=== PATIENT | female | born 2005 | race Caucasian/White ===

== ENCOUNTER 2024-04-27 17:11 | Inpatient (IN) | payer MEDICAID, SELFPAY ==
[2024-04-27] VITALS (45 sets, daily range): BP systolic 113–145; BP diastolic 54–78; PULSE 74–141; RESP 14–17; TEMP 35.9–37.1; O2SAT 90–100; BMI 28.3
[2024-04-27] MEDS: Lactated Ringers 1,000 ML 999 ML IV (17:20)
[2024-04-27 17:58] LABS: Absolute Lymphocyte Count 2.53 X10^3/uL (0.83-4.51); Absolute Neutrophil Count 8.3 X10^3/uL (2.0-7.7); Basophil# 0.04 X10^3/uL; Basophil% 0.3 % (0-1); Eosinophil# 0.02 X10^3/uL; Eosinophils% 0.2 % (0-5); Hematocrit 35.4 % (37-47); Hemoglobin 11.3 g/dL (12.0-15.0); Lymphocyte # 2.53 X10^3/ul (0.83-4.51); Lymphocyte % 21.5 % (19-41); Mean Corp Hgb Conc 31.9 g/dL (32-36); Mean Corpuscular Volume 87.6 fL (81-99); Mean Platelet Vol. 11.1 fl (6.2-12.0); Monocyte% 6.8 % (0-10); NRBC Flagged by Analyzer 0 % (0-5); Neutrophil # 8.27 X10^3/uL (2.7-7.7); Neutrophil % 70.3 % (47-70); Platelet Count 274 K/mm3 (150-450); RBC Distribution Width CV 12.9 % (11.6-14.6); RBC Distribution Width SD 40.6 fl (35.1-43.9); Red Blood Count 4.04 M/mm3 (4.2-5.4); White Blood Count 11.8 K/mm3 (4.4-11.0)
[2024-04-27] MEDS: Lactated Ringers 1,000 ML 200 ML IV (18:21)
[2024-04-27] MEDS: fentaNYL-bupivacaine (epidural) 100 ML BAG EPIDURAL (18:28)
--- NOTE | 2024-04-27 18:57 | PCM.HP.OB ---
HPI - General General Date of Admission: 04/27/24 Date of Service: 04/27/24 Chief Complaint: labor HPI Narrative MARCO A SMITH, is a 18 F who presents with contractions. No lof, vb. Good FM. [facility] Medical History (Updated 04/27/24 @ 18:[address] Michelle Cordon, DO) Eczema Home Medications ?Medication ?Instructions ?Recorded ?Last Taken ?Type vit no.95-ferrous 1 tab PO DAILY 04/27/24 Unknown History fumarate 28 mg-folic acid 800 mcg tablet () Allergy/AdvReac Type Severity Reaction Status Date / Time No Known Allergies Allergy Verified 04/27/24 16:39 Family History no significant family his Surgical History no surgical history Social History Smoking Status: Never smoker History Elective abortions Hx Para 0 Spontaneous abortions Hx # Term Pregnancies Ectopic pregnancies Hx # Pregnancies Multiple births # of living children NST FHR Rate Baby A Baseline: 140 Variability:: Moderate Accelerations:: 15 x 15 Decelerations:: None NST Reactive:: Yes FHR Category:: Category I Uterine Activity:: ctx's q 2-3 min Vital Signs Vital Signs Vital Signs: 04/27/24 16:48 04/27/24 16:48 04/27/24 16:50 Temperature Temperature Source Temporal Pulse Rate 101 H Respiratory Rate Blood Pressure BP Systolic BP Diastolic Pulse Ox 99 04/27/24 16:50 04/27/24 16:50 04/27/24 16:50 Temperature Temperature Source Pulse Rate 95 Respiratory Rate 16 Blood Pressure BP Systolic BP Diastolic Pulse Ox 99 04/27/24 16:50 04/27/24 16:51 04/27/24 16:51 Temperature 97.7 F L Temperature Source Pulse Rate 96 Respiratory Rate Blood Pressure 134/78 H BP Systolic 134 BP Diastolic 78 Pulse Ox 04/27/24 18:19 04/27/24 18:19 04/27/24 18:21 Temperature Temperature Source Pulse Rate 114 H Respiratory Rate Blood Pressure 132/72 H BP Systolic 132 BP Diastolic 72 Pulse Ox 100 04/27/24 18:21 04/27/24 18:22 04/27/24 18:24 Temperature Temperature Source Pulse Rate 85 76 Respiratory Rate 16 Blood Pressure BP Systolic BP Diastolic Pulse Ox 04/27/24 18:24 04/27/24 18:26 04/27/24 18:26 Temperature Temperature Source Pulse Rate 97 Respiratory Rate Blood Pressure 122/56 H BP Systolic 122 BP Diastolic 56 Pulse Ox 99 04/27/24 18:29 04/27/24 18:29 04/27/24 18:31 Temperature Temperature Source Pulse Rate 91 Respiratory Rate Blood Pressure 126/57 H BP Systolic 126 BP Diastolic 57 Pulse Ox 100 04/27/24 18:31 04/27/24 18:31 04/27/24 18:34 Temperature Temperature Source Pulse Rate 77 89 Respiratory Rate 16 Blood Pressure BP Systolic BP Diastolic Pulse Ox 04/27/24 18:34 04/27/24 18:35 04/27/24 18:36 Temperature Temperature Source Pulse Rate Respiratory Rate 14 Blood Pressure 113/58 L BP Systolic 113 BP Diastolic 58 Pulse Ox 100 04/27/24 18:36 04/27/24 18:36 04/27/24 18:36 Temperature 96.7 F L Temperature Source Temporal Pulse Rate 82 Respiratory Rate Blood Pressure BP Systolic BP Diastolic Pulse Ox 04/27/24 18:39 04/27/24 18:39 04/27/24 18:44 Temperature Temperature Source Pulse Rate 93 88 Respiratory Rate Blood Pressure BP Systolic BP Diastolic Pulse Ox 99 04/27/24 18:44 04/27/24 18:46 04/27/24 18:46 Temperature Temperature Source Pulse Rate 93 Respiratory Rate Blood Pressure 122/56 H BP Systolic 122 BP Diastolic 56 Pulse Ox 99 04/27/24 18:49 04/27/24 18:49 04/27/24 18:54 Temperature Temperature Source Pulse Rate 87 87 Respiratory Rate Blood Pressure BP Systolic BP Diastolic Pulse Ox 99 04/27/24 18:54 Temperature Temperature Source Pulse Rate Respiratory Rate Blood Pressure BP Systolic BP Diastolic Pulse Ox 98 Weight Weight: 170 lb 6 oz Body Mass Index (BMI) 28.3 Physical Exam Const alert and no apparent distress General Appearance: comfortable HEENT normocephalic Resp normal respiratory effort GI soft to palpation, non-tender and non-distended Labs Labs Labs: Blood Type A POSITIVE Antibody Screen Pending Hct 35.4 % (37-47) L Hgb 11.3 g/dL (12.0-15.0) L Syphilis Total Ab Pending Assessment & Plan (1) 40 weeks gestation of : (2) Active labor at term: PLAN: Patient 6 cm dilated on admission. GBS negative. Epidural for pain control. Cvx now /+1 and head well applied. AROM for minimal to moderate clear fluid. Pelvis adequate and EFW < 4500 grams. (3) Positive hepatitis C antibody test: PLAN: Negative HCV RNA. Likely false positive. Repeat HCV RNA sent on admission as patient did not have repeat drawn third trimester
[2024-04-27 19:44] LABS: Syphilis Antibodies Non-reactive
[2024-04-27] MEDS: Oxytocin 15 Units/NS 250ml 15 UNITS/250 ML IV.SOLN 334 UNITS IV (21:36)
--- NOTE | 2024-04-27 21:59 | PCM.OPRPT ---
Problems Associated Problem List Diagnoses (1) 40 weeks gestation of : (2) Active labor at term: (3) Positive hepatitis C antibody test: Report of Operation Date of Procedure: 04/27/24 Pre-Operative Diagnosis: 40 week gestation, active labor at term Post-Operative Diagnosis: As above Surgery/Procedure Performed:: Repair of right labial laceration Description of Surgical Findings:: VMI in MAT position. Normal appearing placenta with 3 VC Surgeon: Michelle Cordon transfer and pumphouse operator chief: None Type of Anesthesia: Epidural Special Medications: None Specimen's removed: Placenta Drains: None Estimated Blood Loss (mL): 100 Fluids Replaced: N/A Description of Procedure: Patient was prepped once complete and pushing. Head of VMI was delivered in MAT position. The anterior shoulder was delivered with downward traction followed by the posterior shoulder and body of the infant without any excessive traction, force, or delay. A vigorous viable male infant was placed on the maternal abdomen. The cord was clamped and cut after a 60 second delay. The placenta delivered spontaneously and was noted to be normal-appearing and intact with a three-vessel cord. The uterus was explored x 1. Upon inspection, bilateral labial lacerations were noted. The left labial laceration was very superficial and no bleeding was noted. The right labial laceration was bleeding, and was therefore reapproximated using 3-0 Vicryl in a running baseball stitch. Hemostasis was then confirmed. Fundus firm and bleeding hemostatic. A vaginal sweep was performed. Sponge sharp and sponge counts were correct. Grafts/Implants Used: None Complications None
[2024-04-27] MEDS: Oxytocin 15 Units/NS 250ml 15 UNITS/250 ML IV.SOLN 83 UNITS IV (22:06)
[2024-04-28] VITALS (9 sets, daily range): BP systolic 115–130; BP diastolic 58–70; PULSE 69–105; RESP 16–18; TEMP 36.6–37.2; O2SAT 97–98
[2024-04-28] MEDS: Ibuprofen 600 MG Tablet PO ×2 (08:10→15:36)
[2024-04-28] MEDS: Benzocaine/Lanolin/Aloe Vera 85 GM Spray 1 SPRAY TOPICAL (08:10)
--- NOTE | 2024-04-28 11:44 | PCM.PN.OB ---
Subjective Subjective Patient doing well and offers no complaints. Pain is controlled. She is ambulating and voiding without difficulty. Eating without nausea or vomiting. Lochia is normal. Breast-feeding without complaints. She denies chest pain, lightheadedness, leg pain. Objective Data Objective Data Vital Signs: Vital Signs Temp Pulse Resp BP Pulse Ox O2 Del Method 97.8 F 86 16 115/64 99 Room Air 04/28/24 04:45 04/28/24 07:35 04/28/24 04:45 04/28/24 07:35 04/27/24 22:00 04/28/24 04:45 Oxygen Delivery Method Room Air Weight: 170 lb 6 oz Body Mass Index (BMI) 28.3 Intake & Output: Intake and Output for Last 24 Hours 04/26/24 04/27/24 04/28/24 23:59 23:59 23:59 Intake Total 1813.67 / 1813.67 250 / 250 Output Total 200 / 200 250 / 250 Balance 1613.67 / 1613.67 0 / 0 Lab / Micro Data 04/27/24 17:20 Labs: Laboratory Results - last 24 hr 04/27/24 17:20: WBC 11.8 H, RBC 4.04 L, Hgb 11.3 L, Hct 35.4 L, MCV 87.6, MCH 28.0, MCHC 31.9 L, RDW Std Deviation 40.6, RDW Coeff of Drew 12.9, Plt Count 274, MPV 11.1, Immature Gran % (Auto) 0.900, Neut % (Auto) 70.3 H, Lymph % (Auto) 21.5, [place] % (Auto) 6.8, Eos % (Auto) 0.2, Baso % (Auto) 0.3, Absolute Neuts (auto) 8.3 H, Absolute Lymphs (auto) 2.53, Nucleated RBC % 0, Syphilis Total Ab Non-reactive, Blood Type A POSITIVE, Antibody Screen NEGATIVE Physical Exam Const alert and no apparent distress General Appearance: comfortable HEENT normocephalic Resp normal respiratory effort GI soft to palpation, non-tender and non-distended Extremity normal to inspection and no calf tenderness Assessment & Plan (1) Vaginal delivery: PLAN: PPD#1 s/p . Baby and patient doing well. Routine care.
[2024-04-29 01:20] VITALS: BP 132/79; PULSE 127; PULSE 84; RESP 16; O2SAT 97
[2024-04-29] MEDS: Ibuprofen 600 MG Tablet PO (01:22)
[2024-04-29 07:33] VITALS: BP 112/56; PULSE 72
[2024-04-29 08:02] VITALS: BP 112/56; PULSE 72; RESP 16; TEMP 36.2
--- NOTE | 2024-04-29 09:45 | PCM.DC.SUM ---
Providers Date of Admission: 04/27/24 Primary Care Physician: Annalisa Primary Care Phys Reason For Visit: VAGINAL DELIVERY Diagnosis Discharge Diagnosis (1) Vaginal delivery: Status: Acute Code(s): O80 - Encounter for full-term uncomplicated delivery Medications at Discharge Home Medications vit no.95-ferrous fumarate 28 mg-folic acid 800 mcg tablet () 1 tab PO DAILY 04/27/24 acetaminophen 500 mg tablet 1,000 mg (2 x 500 mg) PO Q6H PRN PRN Pain 1-10 Or Fever #0 tabs 04/29/24 ibuprofen 600 mg tablet 600 mg PO Q6H PRN PRN Pain Score 1-10 #0 tabs 04/29/24 Weight / BMI Weight Weight: 170 lb 6 oz Body Mass Index (BMI) 28.3 ABG / Lab / Microbiology Data 04/27/24 17:20 D/C Instructions Discharge Diet: No restrictions Discharge Activity: Return to Normal Activity, May Drive, May Shower and May Take a Tub Bath May resume sexual activity in: 6 weeks Weight Bearing Status: Full weight bearing Call your doctor if you observe: Fever of 101 or Higher, Inability to urinate, Using more than 1 pad per hour, Shortness of breath, Chest pain, Increased palpitations (irregular heartbeat), Calf discomfort and Uncontrolled pain Please Follow Up With: Daina Johnson CNM When: 2 week virtual visit and 6 week visit Meaningful Use Info Meaningful Use Meaningful Use Diagnoses (Choose all that apply): None applicable Ischemic Stroke Statin Dosing Therapy Reference: STATIN DOSE THERAPY REFERENCE: * Patients > 75 years receive moderate or high dose statin therapy. * Patients 75 years or YOUNGER should receive HIGH intensity statin dose unless contraindicated. You will be required to document reason for non-treatment if statin daily dose does not meet guidelines. HIGH DOSE STATIN THERAPY DAILY Atorvastatin > than or = to 40 mg Rosuvastatin > than or = to 20 mg Amlodipine + Atorvastatin > than or = to 2.5/40 mg Ezetimibe + Simvastatin 10/80 mg Simvastatin 80mg Discharge Plan Admission Admit Date/Time: 04/27/24 17:11 Primary Reason for Your Visit: Attending Provider: Michelle Cordon Primary Care Provider: Care Physician,Annalisa Primary Discharge Orders/Prescriptions Prescriptions: New acetaminophen 500 mg Tablet 1,000 mg PO Q6H PRN PRN (Reason: Pain 1-10 Or Fever) Qty: 0 0RF ibuprofen 600 mg Tablet 600 mg PO Q6H PRN PRN (Reason: Pain Score 1-10) Qty: 0 0RF No Action PNV cmb#95-ferrous fumarate-FA [] 28 mg iron- 800 mcg tablet 1 tab PO DAILY Referrals / Follow Up: Care Physician,No Primary [Primary Care Provider] - Disposition Disposition (needs filled in before D/C Order can be placed): Home, Self Care
--- NOTE | 2024-04-29 09:46 | PCM.PN.OB ---
Subjective Subjective Doing well per patient and nursing staff. Ambulating and taking PO without difficulty. Voiding and passing flatus. Pain controlled. , services for assistance. Denies headache, visual changes, chest pain, shortness of breath, leg pain or increased bleeding. Lochia normal. Objective Data Objective Data Vital Signs: Vital Signs Temp Pulse Resp BP Pulse Ox O2 Del Method 97.1 F L 72 16 112/56 L 97 Room Air 04/29/24 08:02 04/29/24 08:02 04/29/24 08:02 04/29/24 08:02 04/29/24 01:20 04/29/24 01:20 Oxygen Delivery Method Room Air Weight: 170 lb 6 oz Body Mass Index (BMI) 28.3 Intake & Output: Intake and Output for Last 24 Hours 04/27/24 04/28/24 04/29/24 23:59 23:59 23:59 Intake Total 1813.67 / 1813.67 250 / 250 Output Total 200 / 200 750 / 750 Balance 1613.67 / 1613.67 -500 / -500 Lab / Micro Data 04/27/24 17:20 Physical Exam Const alert and oriented x3 General Appearance: cooperative Orientation / Consciousness: awake, oriented to person, oriented to place and oriented to time Exam Limitations: no limitations HEENT normocephalic Head and Scalp: normal to inspection, normocephalic and atraumatic Face and Sinus: normal facial exam Eyes General Eye: normal appearance of both eyes Neck full ROM Chest Chest: symmetrical chest wall rise Resp normal respiratory effort and normal air movement Auscultation: clear to auscultation bilaterally Cardio regular rate, regular rhythm, S1 normal heart sound, S2 normal heart sound, no murmurs, no rub, no gallops and no clicks GI normal to inspection, nondistended, normoactive bowel sounds and non-tender appearance of the vagina normal Bladder / Kidney Exam: no CVA tenderness Back/Spine normal ROM Extremity normal to inspection and full ROM Skin no rashes or lesions noted Neuro oriented x3, CN's II-XII intact bilaterally and moves all extremities Sensorium / Orientation: awake, alert and oriented to person Motor Exam: clonus absent Deep Tendon Reflexes: Rt Patellar (L4): 2+ and Lt Patellar (L4): 2+ Assessment & Plan (1) Vaginal delivery: (2) Positive hepatitis C antibody test: PLAN: Plan 1) Routine PP care 2) Vitals stable 3) Bottle feeding 4) D/C home
[2024-04-29 12:00] VITALS: BP 129/70; PULSE 83; RESP 16; TEMP 36.7
[2024-04-29 13:46] VITALS: BP 129/70; PULSE 83
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
--- NOTE | 2024-05-03 12:24 | NURSING ---
Follow up phone call made, no answer, voicemail left.
== END 2024-04-29 14:45 | disposition home or self-care (01) | DRG 560 ==
LOC: WP 17:30
PROVIDERS: Admitting Provider Obstetrics & Gynecology; Referring Provider Obstetrics & Gynecology; Visit Provider Obstetrics & Gynecology
DX: O70.0 First degree perineal laceration during delivery (principal); Z37.0 Single live birth; Z3A.40 40 weeks gestation of pregnancy
CPT/HCPCS: 59025; 59050; 85025; 86780; 86850; 86900; 86901; 87522; 99221; J7120; G0378